=== PATIENT | male | born 1990 | race Caucasian/White ===

== ENCOUNTER → 2016-10-12 | Outpatient (CLI) | payer OTHER ==
--- NOTE | 2016-10-12 08:40 | DIAGNOSTIC IMAGING REPORT ---
TESTICULAR ULTRASOUND HISTORY: Pain N50.811 Testicular pain, [id number] Testicular [id number] COMPARISON: None. FINDINGS: Right testis: There are no intratesticular masses. Normal color flow. No hydrocele. The epididymis is unremarkable. Left testis: There are no intratesticular masses. Normal color flow. No hydrocele. The epididymis is unremarkable. IMPRESSION: Normal testicular ultrasound. Electronically signed by: Shawn Bunch M.D. 10/12/2016 8:38 AM Dictated Date/Time: 10/12/2016 8:38 AM
== END | disposition home or self-care (01) ==
LOC: C.ULTRBC 08:04
PROVIDERS: ATTEND Internal Medicine
DX: N50.9 Disorder of male genital organs, unspecified (principal); N50.811 Right testicular pain